=== PATIENT | female | born 1965 | race Caucasian/White ===

== ENCOUNTER 2024-05-21 05:18 | Outpatient (CLI) | payer OTHER, SELFPAY | END 2024-05-21 05:19 | disposition home or self-care (01) | LOC: AMB 05-29 01:34 | PROVIDERS: PCP Family Medicine; Visit Provider Family Medicine | DX: R55 Syncope and collapse (principal); R42 Dizziness and giddiness | CPT/HCPCS: A0425; A0427 ==